=== PATIENT | female | born 1965 | race Caucasian/White ===

== ENCOUNTER 2021-05-06 16:32 | Inpatient (IN) ==
[2021-05-06] MEDS ORDERED: Furosemide 40 MG/4 ML VIAL IVP ONE ×2 (16:54→23:00)
[2021-05-06 17:23] LABS: Basophils # 0.1 K/mcL (0.0-0.2); Basophils % 0.5 %; Eosinophils # 0.2 K/mcL (0.0-0.6); Eosinophils % 1.4 %; Hematocrit 39.7 % (35.3-44.9); Immature Granulocytes % 0.3 % (0-4); Lymphocytes # 0.9 K/mcL (0.6-4.6); Lymphocytes % 8.1 %; Mean Corpuscular HGB Conc 27.7 g/dL (31.6-35.5); Mean Corpuscular Hemoglobin 19.2 pg (28.0-33.3); Mean Corpuscular Volume 69.2 fL (83.0-100.0); Mean Platelet Volume 10.1 fL (9.4-12.4); Monocytes # 1.1 K/mcL (0.0-1.3); Monocytes % 10.4 %; Neutrophils # 8.7 K/mcL (1.6-8.9); Nucleated Red Blood Cells 0.3 /100 WBC (0); Platelet Count 453 K/mcL (140-400); Red Blood Count 5.74 M/mcL (3.82-4.97); Red Cell Distribution Width 20.6 % (11.5-14.5); Segmented Neutrophils % 79.3 %
[2021-05-06 17:32] LABS: INR 1.5
[2021-05-06 17:34] LABS: Activated Partial Thrombo Time 31.4 Seconds (26.0-36.0)
[2021-05-06 17:42] LABS: BUN/Creatinine Ratio 17 (6-26); Blood Urea Nitrogen 12 mg/dL (6-20); Calcium 8.6 mg/dL (8.6-10.3); Carbon Dioxide 37 mEq/L (23-29); Chloride 95 mEq/L (98-107); Glucose 111 mg/dL (70-105); Osmolality,Calculated 286 (280-300); Potassium 3.8 mEq/L (3.5-5.1); Sodium 138 mEq/L (136-145); eGFR For African Americans > 60 (> 60); eGFR For Non-African Americans > 60 (> 60)
[2021-05-06 17:43] LABS: Albumin 3.3 g/dL (3.5-5.7); Albumin/Globulin Ratio 1.1 (1.1-2.2); Bilirubin,Direct 0.4 mg/dL (0.0-0.2); Bilirubin,Indirect 0.6 mg/dL (0.0-1.0); Globulin 3.1 g/dL (2.4-3.5); Total Protein 6.4 g/dL (6.4-8.9); Troponin I < 0.03 ng/mL (< 0.04)
[2021-05-06 17:50] LABS: Anisocytosis 1+ (Not Present); Macrocytosis Present (Not Present); Microcytosis Present (Not Present)
[2021-05-06 17:52] LABS: Hypochromasia Present (Not Present); Platelet Estimate Increased (Normal); Target Cells 1+ (Not Present)
[2021-05-06] MEDS ORDERED: *HR* Enoxaparin 120 MG/0.8 ML SYRINGE SQ STA (21:04)
[2021-05-07] MEDS ORDERED: Furosemide 40 MG/4 ML VIAL IVP ONE (07:58)
[2021-05-07] MEDS ORDERED: Acetaminophen 325 MG TABLET PO PRN (11:19)
[2021-05-07] MEDS ORDERED: Ondansetron 4 MG/2 ML VIAL IVP PRN (11:19)
[2021-05-07] MEDS ORDERED: Naloxone 0.4 MG/ML INJ IVP PRN (11:19)
[2021-05-07] MEDS ORDERED: Perflutren Lipid Microsphere 1.3 ML in 0.9 % Sodium Chloride 8.7 ML IVP PRN (11:20)
[2021-05-07] MEDS ORDERED: Nitroglycerin 0.4 MG TAB.SUBL SL PRN (11:27)
[2021-05-07] MEDS: Ipratropium/Albuterol Neb 3 ML IH SCH ×3 (12:46→21:37)
[2021-05-07] MEDS: Aspirin Enteric Coated 81 MG Tablet PO SCH (13:06)
[2021-05-07] MEDS ORDERED: Cefepime HCl 1,000 MG in 0.9 % Sodium Chloride Mini Bag 100 ML IVPB SCH ×2 (18:00→18:15)
[2021-05-07] MEDS ORDERED: Doxycycline 100 MG in 0.9 % Sodium Chloride Mini Bag 100 ML IVPB SCH (18:00)
[2021-05-07] MEDS: Apixaban 5 MG TABLET PO SCH (22:19)
[2021-05-07] MEDS: Furosemide 20 MG/2 ML VIAL IVP SCH (22:31)
[2021-05-08] MEDS: Ipratropium/Albuterol Neb 3 ML IH SCH ×6 (01:22→21:03)
[2021-05-08] MEDS: Doxycycline 100 MG in 0.9 % Sodium Chloride Mini Bag 100 ML IVPB SCH ×3 (05:16→18:15)
[2021-05-08 05:32] LABS: Hemoglobin 10.2 g/dL (11.5-15.4); Mean Corpuscular HGB Conc 26.8 g/dL (31.6-35.5); Mean Corpuscular Hemoglobin 18.8 pg (28.0-33.3); Mean Corpuscular Volume 69.9 fL (83.0-100.0); Mean Platelet Volume 10.3 fL (9.4-12.4); Platelet Count 351 K/mcL (140-400); Red Blood Count 5.44 M/mcL (3.82-4.97); Red Cell Distribution Width 20.4 % (11.5-14.5); White Blood Count 10.6 K/mcL (4.3-11.1)
[2021-05-08] MEDS ORDERED: Ondansetron ODT 4 MG TAB.RAPDIS SL ONE (05:43)
[2021-05-08 07:35] LABS: BUN/Creatinine Ratio 18 (6-26); Blood Urea Nitrogen 15 mg/dL (6-20); Calcium 8.6 mg/dL (8.6-10.3); Carbon Dioxide 40 mEq/L (23-29); Chloride 92 mEq/L (98-107); Cholesterol 92 mg/dL (< 200); Glucose 89 mg/dL (70-105); HDL Cholesterol 23 mg/dL (40-59); LDL Cholesterol,Calculated 54 mg/dL (< 100); Osmolality,Calculated 286 (280-300); Potassium 4.2 mEq/L (3.5-5.1); Sodium 138 mEq/L (136-145); Triglycerides 74 mg/dL (< 150); eGFR For African Americans > 60 (> 60); eGFR For Non-African Americans > 60 (> 60)
[2021-05-08] MEDS: Aspirin Enteric Coated 81 MG Tablet PO SCH (07:44)
[2021-05-08] MEDS: Apixaban 5 MG TABLET PO SCH ×2 (07:44→20:24)
[2021-05-08] MEDS: Furosemide 20 MG/2 ML VIAL IVP SCH ×2 (07:46→20:24)
[2021-05-08] MEDS: Cefepime HCl 1,000 MG in 0.9 % Sodium Chloride Mini Bag 100 ML IVPB SCH ×2 (07:47→20:23)
[2021-05-08 11:11] LABS: BUN/Creatinine Ratio 17 (6-26); Blood Urea Nitrogen 15 mg/dL (6-20); Calcium 8.5 mg/dL (8.6-10.3); Carbon Dioxide 39 mEq/L (23-29); Chloride 93 mEq/L (98-107); Glucose 90 mg/dL (70-105); Magnesium 1.6 mg/dL (1.6-2.6); Osmolality,Calculated 284 (280-300); Potassium 5.2 mEq/L (3.5-5.1); Sodium 137 mEq/L (136-145); eGFR For African Americans > 60 (> 60); eGFR For Non-African Americans > 60 (> 60)
[2021-05-08] MEDS ORDERED: Isovue-370 500 ML BOTTLE IVP ONE (13:36)
[2021-05-09] MEDS: Ipratropium/Albuterol Neb 3 ML IH SCH ×6 (00:08→21:20)
[2021-05-09] MEDS: Doxycycline 100 MG in 0.9 % Sodium Chloride Mini Bag 100 ML IVPB SCH ×2 (05:14→16:38)
[2021-05-09] MEDS: Apixaban 5 MG TABLET PO SCH ×2 (08:32→20:43)
[2021-05-09] MEDS: Aspirin Enteric Coated 81 MG Tablet PO SCH (08:32)
[2021-05-09] MEDS: Furosemide 20 MG/2 ML VIAL IVP SCH ×2 (08:33→21:57)
[2021-05-09] MEDS: Cefepime HCl 1,000 MG in 0.9 % Sodium Chloride Mini Bag 100 ML IVPB SCH ×2 (08:34→20:42)
[2021-05-09] MEDS ORDERED: Furosemide 20 MG/2 ML VIAL IVP ONE (09:21)
[2021-05-09] MEDS: Albumin 25% 25gram/100mL 25 GM/100 ML IV.SOLN IVPB SCH (17:06)
[2021-05-09 17:57] LABS: ABG Base Excess 18 mEq/L (-2 to 3); ABG HCO3 51 mEq/L (21-27); ABG Oxygen Saturation 34 % (95-98); ABG PCO2 109 mmHg (35-45); ABG PH 7.28 pH Units (7.32-7.45); ABG PO2 26 mmHg (85-104); ABG TCO2 > 50 mEq/L (20-26)
[2021-05-09] MEDS ORDERED: ALPRAZolam 0.5 MG TABLET PO PRN (18:30)
[2021-05-09 20:11] LABS: ABG Base Excess 16 mEq/L (-2 to 3); ABG HCO3 48 mEq/L (21-27); ABG Oxygen Saturation 92 % (95-98); ABG PCO2 103 mmHg (35-45); ABG PH 7.28 pH Units (7.32-7.45); ABG PO2 79 mmHg (85-104); ABG TCO2 > 50 mEq/L (20-26); Blood Gas Modality BiLevel
[2021-05-09] MEDS: acetaZOLAMIDE 250 MG TABLET PO SCH (20:43)
[2021-05-09] MEDS ORDERED: Furosemide 40 MG/4 ML VIAL IVP SCH (21:00)
[2021-05-10] MEDS: Albumin 25% 25gram/100mL 25 GM/100 ML IV.SOLN IVPB SCH ×2 (00:04→08:57)
[2021-05-10] MEDS: Ipratropium/Albuterol Neb 3 ML IH SCH ×4 (01:49→11:51)
[2021-05-10] MEDS ORDERED: MethylPREDNISolone 40 MG/ML VIAL IVP SCH (05:36)
[2021-05-10] MEDS: Doxycycline 100 MG in 0.9 % Sodium Chloride Mini Bag 100 ML IVPB SCH (05:49)
[2021-05-10 07:27] VITALS: BP 141/84; PULSE 88; TEMP 97.7
[2021-05-10 07:28] LABS: ABG Base Excess 11 mEq/L (-2 to 3); ABG HCO3 42 mEq/L (21-27); ABG Oxygen Saturation 88 % (95-98); ABG PCO2 88 mmHg (35-45); ABG PH 7.29 pH Units (7.32-7.45); ABG PO2 65 mmHg (85-104); ABG TCO2 45 mEq/L (20-26); Blood Gas Pressure Support 18 cm H2O
[2021-05-10] MEDS: Cefepime HCl 1,000 MG in 0.9 % Sodium Chloride Mini Bag 100 ML IVPB SCH (08:44)
[2021-05-10] MEDS: Furosemide 20 MG/2 ML VIAL IVP SCH (08:45)
[2021-05-10 08:54] LABS: BUN/Creatinine Ratio 27 (6-26); Blood Urea Nitrogen 16 mg/dL (6-20); Calcium 8.9 mg/dL (8.6-10.3); Carbon Dioxide 40 mEq/L (23-29); Chloride 90 mEq/L (98-107); Glucose 88 mg/dL (70-105); Osmolality,Calculated 283 (280-300); Potassium 3.7 mEq/L (3.5-5.1); Sodium 136 mEq/L (136-145); eGFR For African Americans > 60 (> 60); eGFR For Non-African Americans > 60 (> 60)
[2021-05-10] MEDS: Aspirin Enteric Coated 81 MG Tablet PO SCH (08:56)
[2021-05-10] MEDS: acetaZOLAMIDE 250 MG TABLET PO SCH (08:56)
[2021-05-10] MEDS: Apixaban 5 MG TABLET PO SCH (08:57)
[2021-05-10 10:30] LABS: Adenovirus Not Detected (Not Detect); Bordetella Pertussis Not Detected (Not Detect); Chlamydophila pneumoniae Not Detected (Not Detect); Coronavirus 229E Not Detected (Not Detect); Coronavirus HKU1 Not Detected (Not Detect); Coronavirus NL63 Not Detected (Not Detect); Coronavirus OC43 Not Detected (Not Detect); Human Metapneumovirus Not Detected (Not Detect); Human Rhinovirus/Enterovirus Not Detected (Not Detect); Influenza A Subtype 2009 H1 Not Detected (Not Detect); Influenza B Not Detected (Not Detect); Mycoplasma pneumoniae Not Detected (Not Detect); Parainfluenza Virus 1 Not Detected (Not Detect); Parainfluenza Virus 2 Not Detected (Not Detect); Parainfluenza Virus 3 Not Detected (Not Detect); Parainfluenza Virus 4 Not Detected (Not Detect); Respiratory Syncytial Virus Not Detected (Not Detect); SARS-CoV-2 Not Detected (Not Detect)
[2021-05-10 11:54] VITALS: RESP 30; O2SAT 95
== END 2021-05-10 13:15 | disposition short-term general hospital (02) | DRG 194 ==
LOC: EMEROOPIK 16:32 → INPPIK 16:32 → EMEROOPIK 05-07 00:20 → INPPIK 05-07 19:02
PROVIDERS: ADMIT Family Medicine; ATTEND Family Medicine